=== PATIENT | female | born 2000 | race Caucasian/White ===

== ENCOUNTER 2022-05-14 21:08 | Emergency (ER) | payer OTHER, SELFPAY ==
[2022-05-14 21:09] VITALS: BP 122/77; PULSE 78; RESP 16; TEMP 36.7; O2SAT 99; BMI 33.3
[2022-05-14 21:55] VITALS: BP 128/72; PULSE 89; RESP 12; O2SAT 99
--- NOTE | 2022-05-14 21:55 | [facility].EDGENADL ---
Discharge Plan Disposition Patient Disposition: Home, Self-Care Condition: Good Referrals Follow up/Referrals: Sha Albrecht [Primary Care Provider] - See instructions Activity Restrictions/Add. Instructions Additional Instructions/Restrictions: Eye ointment as directed. Follow-up with optometry/ophthalmology on Tuesday. Return to ER for pain, decreased visual acuity. Clinical Impressions Clinical Impression: Bacterial conjunctivitis Instructions Patient Instructions: DI for Eye Pain Discharge ED Provider: Sha Botello General Adult HPI General Chief complaint: Eye Problems Stated complaint: Left eye Red and running Time Seen by Provider: 05/14/22 21:30 Mode of Arrival: Ambulatory Source of Information: Patient Limitations: No Limitations Description of Symptoms (Recalled from ER Triage Doc. by RN): Pt reports awaking from nap today and her left eye being stuck closed . She reports redness, irritation and epiphora to left eye since. History of Present Illness HPI narrative: 21yo F presents to the emergency department secondary to waking from a nap with her left eye being stuck closed. Reports mild irritation, dryness, tearing. No known sick contact. Does not wear glasses or contacts. Related Data Allergies Allergy/AdvReac Type Severity Reaction Status Date / Time No Known Allergies Allergy Verified 07/29/17 20:33 [facility] Disclaimer: The information contained in this section may have been updated after the patient was seen, as this information can be updated by other users. Social History Smoking Status: Never smoker alcohol intake: never current occupational status: other Travel in the last 8 weeks: None ROS Obtained: Yes Systems reviewed as appropriate & no additional complaints except as documented Physical Exam General General appearance: alert and in no apparent distress Head Head exam: atraumatic Eye Eye exam: Present PERRL, EOMI and conjunctival redness (Left eye); Absent jaundice, discharge, miosis, mydriasis or periorbital swelling ENT ENT exam: Present normal exam Neck Neck exam: Present normal inspection and trachea midline; Absent lymphadenopathy Chest Chest inspection: Present normal inspection Respiratory Respiratory exam: Present normal lung sounds bilaterally; Absent respiratory distress Cardiovascular Cardiovascular exam: Present regular rate and normal rhythm Abdominal Exam Abdominal exam: Present soft; Absent distention or tenderness Extremities Exam Extremities exam: Present normal inspection Neurological Exam Neurological exam: Present alert and oriented X3 Psychiatric Psychiatric exam: Present normal affect Skin Skin exam: Present warm Medical Decision Making Medical Records Medical records reviewed: Yes I reviewed the patient's medical records. Nicola Inquiry Pt receiving controlled substance: No Nicola was queried for this patient: No Vital Signs: 05/14/22 21:09 Temperature 98.0 F Temperature Source Oral Pulse Rate [Right Radial] 78 Respiratory Rate 16 Blood Pressure [Right Arm] 122/77 Blood Pressure Mean [Right Arm] 92 Blood Pressure Source [Right Arm] Automatic Cuff Blood Pressure Position [Right Arm] Sitting 02 Sat by Pulse Oximetry 99 Oxygen Delivery Method Room Air Medical Decision Narrative: 21yo F evaluated for red eyes. Patient is in no acute distress. Differential diagnosis includes was not limited to: Viral conjunctivitis, bacterial conjunctivitis, glaucoma. Patient is in no acute distress and has no pain. Reports her vision is normal, therefore glaucoma seems very unlikely. Treat with erythromycin in the emergency department. Discharged home with a prescription for the same. Encouraged to follow-up with optometry/ophthalmology on Tuesday Critical Care Time Critical Care Time Critical Care Time: No Attestation: On 05/14/22, the high probability of a clinically significant
[2022-05-14 22:36] VITALS: BP 130/70; PULSE 90; RESP 18; TEMP 36.6; O2SAT 99
== END 2022-05-14 22:41 | disposition home or self-care (01) ==
PROVIDERS: Emergency Provider Family Medicine; PCP Pediatrics
DX: H10.32 Unspecified acute conjunctivitis, left eye (principal)
CPT/HCPCS: 99283; 99284